=== PATIENT | female | born 1995 | race American Indian/Alaskan Native ===

== ENCOUNTER 2018-07-28 14:09 | Emergency (ER) | payer MEDICAID ==
[2018-07-28 14:53] VITALS: TEMP 98.7
--- NOTE | 2018-07-28 15:26 | ED PDOC ---
Arrival/HPI - General Historian: Patient - History of Present Illness Narrative History of Present Illness (Text): 07/28/18 15:20 Patient is a 23yo F with no PMH presenting to ED for vaginal bleeding. Patient is s/p D&C on 06/21/18. She reports light vaginal bleeding for the 4 weeks following the which progressed to heavy dark red vaginal bleeding for the past 3 days. At 1am this morning she reports passing a large clot of blood and upon further examination saw a head and eyes, consistent with parts. Patient continues to have vaginal bleeding at this time. She complains of some crampy abdominal pain that is intermittent and mild. She also reports fatigue and some nausea. She denies fever, chills, headache, dizziness, shortness of breath, chest pain, vomiting, diarrhea, constipation, or dysuria. Patient does not follow with [facility] at this time. Time/Duration: Other (15 hours) Symptom Onset: Sudden Symptom Course: Improving <Sally Bentley - Last Filed: 07/28/18 19:11> <Oneyda Morris - Last Filed: 07/31/18 18:08> <Ellyn Robison - Last Filed: 08/01/18 11:09> - General Chief Complaint: Female Genitourinary Past Medical History - Infectious Disease Hx of Infectious Diseases: None - Reproductive Menopause: No - Past Medical History Past Medical History: No Previous - Cardiac Hx Cardiac Disorders: Yes Hx Hypertension: Yes - Neurological Hx Neurological Disorder: No - Integumentary Hx Dermatological Disorder: No - Musculoskeletal/Rheumatological Hx Musculoskeletal Disorders: No - Psychiatric Hx Substance Use: No - Surgical History Hx Dilation and Curettage: Yes (x2) - Anesthesia Hx Anesthesia Reactions: No <Sally Bentley - Last Filed: 07/28/18 19:11> Family/Social History Family/Social History: No Known Family HX Smoking Status: Current Some Days Smoker Hx Alcohol Use: No Hx Substance Use: No <Sally Bentley - Last Filed: 07/28/18 19:11> Allergies/Home Meds <Sally Bentley - Last Filed: 07/28/18 19:11> <Oneyda Morris - Last Filed: 07/31/18 18:08> <Ellyn Robison - Last Filed: 08/01/18 11:09> Allergies/Adverse Reactions: Allergies pineapple Allergy (Verified 07/28/18 14:53) SWELLING Home Medications: Home Meds Medication Instructions Recorded Confirmed No Known Home Med 07/28/18 07/28/18 Review of Systems - Review of Systems Constitutional: Fatigue. absent: Fevers Eyes: Normal. absent: Vision Changes ENT: Normal Respiratory: Normal. absent: SOB Cardiovascular: Normal. absent: Chest Pain, Syncope Gastrointestinal: Abdominal Pain, Nausea. absent: Constipation, Diarrhea, Vomiting, Hematochezia Genitourinary Female: Vaginal Bleeding. absent: Dysuria Musculoskeletal: Normal Skin: Normal (f) Neurological: Normal. absent: Headache, Dizziness Psychiatric: Normal <Sally Bentley - Last Filed: 07/28/18 19:11> Physical Exam Vital Signs Reviewed: Yes Vital Signs Temp Pulse Resp BP Pulse Ox 07/28/18 14:45 98.7 F 88 20 109/76 98 Temperature: Afebrile Blood Pressure: Normal Pulse: Regular Respiratory Rate: Normal Appearance: Positive for: Well-Appearing, Non-Toxic, Comfortable Pain Distress: None Mental Status: Positive for: Alert and Oriented X 3 - Systems Exam Head: Present: Atraumatic, Normocephalic Pupils: Present: PERRL Extroacular Muscles: Present: EOMI Conjunctiva: Present: Normal Mouth: Present: Moist Mucous Membranes Neck: Present: Normal Range of Motion Respiratory/Chest: Present: Clear to Auscultation, Good Air Exchange. No: R espiratory Distress, Accessory Muscle Use, Wheezes, Rales, Rhonchi Cardiovascular: Present: Regular Rate and Rhythm, Normal S1, S2. No: Murmurs, Rub, Gallop Abdomen: Present: Tenderness, Normal Bowel Sounds. No: Distention, Peritoneal Signs, Rebound (tenderness to palpation of epigastric region, LLQ and RLQ. no suprapubic tenderness.) Upper Extremity: Present: Normal Inspection, Normal ROM, Norm 2-Pt Discrimination. No: Cyanosis, Edema Lower Extremity: Present: Normal Inspection, Normal ROM. No: Edema Neurological: Present: GCS=15, CN II-XII Intact, Speech Normal, Motor Func Grossly Intact, Normal Sensory Function Skin: Present: Normal Color. No: Warm, Dry, Rashes Psychiatric: Present: Alert, Oriented x 3, Normal Insight, Normal Concentration <Sally Bentley - Last Filed: 07/28/18 19:11> Vital Signs Temp Pulse Resp BP Pulse Ox 07/28/18 16:12 79 18 124/47 L 100 07/28/18 14:45 98.7 F 88 20 109/76 98 <Ellyn Robison - Last Filed: 08/01/18 11:09> Medical Decision Making ED Course and Treatment: 07/28/18 17:22 IMPRESSION: Heterogeneous thickened endometrium measuring approximately 2 cm in diameter. Recommend clinical correlation and follow-up as indicated. Right ovarian cysts. - Lab Interpretations Lab Results: PT 10.6 SECONDS (9.4-12.5) 07/28/18 16:00 INR 0.95 07/28/18 16:00 APTT 36.9 Seconds (26.9-38.3) 07/28/18 16:00 Urine Color Yellow (YELLOW) 07/28/18 16:00 Urine Appearance Clear (CLEAR) 07/28/18 16:00 Urine pH 6.5 (4.7-8.0) 07/28/18 16:00 Ur Specific [place] 1.015 (1.005-1.035) 07/28/18 16:00 Urine Protein Negative mg/dL (<30 mg/dL) 07/28/18 16:00 Urine Glucose (UA) Negative mg/dL (NEGATIVE) 07/28/18 16:00 Urine Ketones Negative mg/dL (NEGATIVE) 07/28/18 16:00 Urine Blood Large (NEGATIVE) H 07/28/18 16:00 Urine Nitrate Negative (NEGATIVE) 07/28/18 16:00 Urine Bilirubin Negative (NEGATIVE) 07/28/18 16:00 Urine Urobilinogen 0.2 E.U./dL (<1 E.U./dL) 07/28/18 16:00 Ur Leukocyte Esterase Trace Donna/uL (NEGATIVE) H 07/28/18 16:00 Urine RBC 25 - 30 /hpf (0-2) H 07/28/18 16:00 Urine WBC 2 - 5 /hpf (0-6) 07/28/18 16:00 Ur Epithelial Cells 6 - 8 /hpf (0-5) H 07/28/18 16:00 Urine HCG, Qual Positive (NEGATIVE) 07/28/18 16:00 Urine HCG, Qual Positive (NEGATIVE) 07/28/18 16:00 - RAD Interpretation Radiology Orders: 07/28/18 15:26 TRANSVAGINAL [US] Stat - Medication Orders Current Medication Orders: Sodium Chloride (Sodium Chloride 0.9%) 1,000 mls @ 100 mls/hr IV .Q10H MERON Last Admin: 07/28/18 16:13 Dose: 100 mls/hr eMAR Start Stop Document 07/28/18 16:13 OCS (Rec: 07/28/18 16:13 OCS [facility] [id number] Intravenous Solution Start Date 07/28/18 Start Time 16:13 <Ellyn Robison - Last Filed: 08/01/18 11:09> Disposition/Present on Arrival - Present on Arrival Any Indicators Present on Arrival: No History of DVT/PE: No History of Uncontrolled Diabetes: No Urinary Catheter: No History of Decub. Ulcer: No History Surgical Site Infection Following: None - Disposition Have Diagnosis and Disposition been Completed?: Yes Disposition Time: 18:59 <Sally Bentley - Last Filed: 07/28/18 19:11> <Oneyda Morris - Last Filed: 07/31/18 18:08> <Ellyn Robison - Last Filed: 08/01/18 11:09> - Disposition Diagnosis: Vaginal bleeding, Products of conception, retention Disposition: HOME/ ROUTINE Condition: IMPROVED Discharge Instructions (ExitCare): Additional Instructions: Your beta-HCG value is 106.39. Please return to the emergency department or [facility] in 2 days to repeat your beta-HCG value to make sure it decreases. Please establish care with an [facility]. Your ultrasound showed a thickened endometrium. If symptoms worsen, return to the Emergency Department. Referrals: Dalia Arcos MD [Primary Care Provider] - Follow up with primary Forms: Alex [employer] Ani ([place])
[2018-07-28] MEDS ORDERED: Sodium Chloride 0.9% 1,000 ML IV SCH (15:30)
[2018-07-28 16:12] VITALS: RESP 18; O2SAT 100
[2018-07-28 16:18] LABS: BASO # 0.02 K/mm3 (0.0-2.0); BASO % 0.2 % (0.0-3.0); EOS # 0.4 (0.0-0.7); EOS % 4.9 % (1.5-5.0); HEMOGLOBIN 11.5 g/dL (12.0-16.0); LYMPH # 2.6 (1.2-3.4); LYMPH % 31.2 % (22.0-35.0); MEAN CELL VOLUME 90.5 fl (80.0-105.0); MEAN CORPUSCULAR HEMOGLOBIN 28.6 pg (25.0-35.0); MEAN CORPUSCULAR HGB CONC 31.6 g/dl (31.0-37.0); MEAN PLATELET VOLUME 9.9 fl (7.0-11.0); MONO # 0.8 (0.1-0.6); MONO % 9.2 % (1.0-6.0); RBC 4.02 10^6/uL (3.5-6.1); RED CELL DISTRIBUTION WIDTH 14.6 % (11.5-14.5); WHITE BLOOD COUNT 8.4 10^3/uL (4.5-11.0)
[2018-07-28 16:19] LABS: PH,URINE 6.5 (4.7-8.0); URINE BILIRUBIN NEGATIVE (NEGATIVE); URINE BLOOD LARGE (NEGATIVE); URINE GLUCOSE (UA) NEGATIVE (NEGATIVE); URINE LEUKOCYTE ESTERASE TRACE Leu/uL (NEGATIVE); URINE PROTEIN NEGATIVE mg/dL (<30 mg/dL); URINE UROBILINOGEN 0.2 E.U./dL (<1 E.U./dL)
[2018-07-28 16:28] LABS: INR 0.95; PARTIAL THROMBOPLASTIN TIME 36.9 Seconds (26.9-38.3); PROTHROMBIN TIME 10.6 SECONDS (9.4-12.5)
[2018-07-28 16:29] LABS: URINE APPEARANCE CLEAR (CLEAR); URINE COLOR YELLOW (YELLOW)
[2018-07-28 16:31] LABS: HCG,QUALITATIVE URINE POSITIVE (NEGATIVE); URINE RBC 25 - 30 /hpf (0-2)
--- NOTE | 2018-07-28 17:22 | US ---
Date of service: 07/28/2018 HISTORY: s/p D C with heavy vaginal bleeding COMPARISON: None available. TECHNIQUE: Transvaginal pelvic ultrasound FINDINGS: UTERUS: Measures 7.4 x 4.9 x 6.2 cm. Retroverted. ENDOMETRIUM: Heterogeneous thickened endometrium measures approximately 2 cm in diameter. CERVIX: No cervical abnormality identified. RIGHT OVARY: Measures 3.6 x 3.4 x 3.5 cm. Blood flow is demonstrated. 2.5 x 1.8 x 2.8 cm and 2.4 x 2.1 x 2.4 cm cysts. LEFT OVARY: Measures 4.0 x 2.4 x 3.3 cm. Blood flow is demonstrated. FREE FLUID: No significant free fluid noted. OTHER FINDINGS: None. IMPRESSION: Heterogeneous thickened endometrium measuring approximately 2 cm in diameter. Recommend clinical correlation and follow-up as indicated. Right ovarian cysts.
[2018-07-28 18:50] LABS: ALB/GLOB RATIO 1.3 (1.1-1.8); ALBUMIN 4.3 g/dL (3.0-4.8); AST/SGOT 28 U/L (14-36); BLOOD UREA NITROGEN 13 mg/dL (7-21); CALCIUM 9.3 mg/dL (8.4-10.5); GFR NON-AFRICAN AMERICAN > 60
[2018-07-28 18:55] LABS: ALT/SGPT < 6 U/L (7-56)
[2018-07-28 19:20] VITALS: BP 101/58; PULSE 71
== END 2018-07-28 19:35 | disposition home or self-care (01) ==
LOC: ED 14:09
DX: O03.1 Delayed or excessive hemorrhage following incomplete spontaneous abortion (principal)
CPT/HCPCS: 76830; 80053; 81001; 84702; 84703; 85025; 85610; 85730; 86850; 86900; 87086; 99283; J7030